=== PATIENT | female | born 1960 | race Caucasian/White ===

== ENCOUNTER 2017-02-18 17:20 | Emergency (ER) | payer OTHER ==
[~2017-02-18] VITALS: Ht 170.1 cm; Wt 89.8 kg
[~2017-02-18 17:20] MED LIST: CELEXA10 MG PO; CELEXA20 MG PO; DUONEB 3 MG/3 ML3 ML IH; FLEXERIL10 MG PO; HYDROCODONE BIT1 T11 PO; PERCOCET 325 MG1 TA2 PO; SYMBICORT1 AE1 INH; VITAMIN D2000 IU PO
[2017-02-18] MEDS ORDERED: BREO ELLIPTA 21 EACH IH (17:45)
[2017-02-18] MEDS ORDERED: ALBUTEROL SULF0.5 M1 INH (17:45)
[2017-02-18] MEDS ORDERED: SERTRALINE HYD100 MG PO (17:46)
[2017-02-18] MEDS ORDERED: Motrin,Rufen800 MG PO (19:31)
== END 2017-02-18 19:15 | disposition home or self-care (01) ==
LOC: ED 17:20
DX: S93.402A Sprain of unspecified ligament of left ankle, initial encounter (principal); F17.200 Nicotine dependence, unspecified, uncomplicated; Z98.890 Other specified postprocedural states; Z90.710 Acquired absence of both cervix and uterus; Z79.899 Other long term (current) drug therapy; X58.XXXA Exposure to other specified factors, initial encounter; Y93.01 Activity, walking, marching and hiking; Y92.096 Garden or yard of other non-institutional residence as the place of occurrence of the external cause; Y99.9 Unspecified external cause status

== ENCOUNTER → 2017-06-21 | Outpatient (CLI) | payer OTHER ==
[~2017-06-21] MED LIST changes: +ALBUTEROL SULF0.5 M1 INH; +BREO ELLIPTA 21 EACH IH; +Motrin,Rufen800 MG PO; +SERTRALINE HYD100 MG PO
== END | disposition home or self-care (01) ==
LOC: RAD 17:06
DX: M48.02 Spinal stenosis, cervical region (principal); R20.2 Paresthesia of skin

== ENCOUNTER → 2017-09-22 | Outpatient (CLI) | payer OTHER | END | disposition home or self-care (01) | LOC: CARD 09:24 | DX: R42 Dizziness and giddiness (principal); R94.31 Abnormal electrocardiogram [ECG] [EKG] ==

== ENCOUNTER 2018-01-03 16:33 | Emergency (ER) | payer OTHER ==
[~2018-01-03] VITALS: Wt 91.2 kg
[2018-01-03] MEDS ORDERED: CHLORZOXAZONE500 M2 PO (16:44)
[2018-01-03] MEDS ORDERED: NAPROSYN500 MG PO (16:44)
== END 2018-01-03 18:40 | disposition home or self-care (01) ==
LOC: ED 16:33
DX: R20.2 Paresthesia of skin (principal); R03.0 Elevated blood-pressure reading, without diagnosis of hypertension; Z98.890 Other specified postprocedural states; Z79.899 Other long term (current) drug therapy

== ENCOUNTER → 2018-01-13 | Outpatient (CLI) | payer OTHER ==
[~2018-01-13] MED LIST changes: +CHLORZOXAZONE500 M2 PO; +NAPROSYN500 MG PO
== END | disposition home or self-care (01) ==
LOC: RAD 13:23
DX: M48.02 Spinal stenosis, cervical region (principal)

== ENCOUNTER → 2018-02-18 | Outpatient (CLI) | payer OTHER | END | disposition home or self-care (01) | LOC: RAD 12:54 | DX: M48.02 Spinal stenosis, cervical region (principal); M25.511 Pain in right shoulder ==

== ENCOUNTER → 2018-03-09 | Outpatient (CLI) | payer OTHER | END | disposition home or self-care (01) | LOC: US 10:16 | DX: M79.9 Soft tissue disorder, unspecified (principal); M25.511 Pain in right shoulder; R20.2 Paresthesia of skin; R22.9 Localized swelling, mass and lump, unspecified ==

== ENCOUNTER → 2018-03-24 | Outpatient (CLI) | payer OTHER | END | disposition home or self-care (01) | LOC: MRI 14:29 | DX: M50.223 Other cervical disc displacement at C6-C7 level (principal); M48.02 Spinal stenosis, cervical region ==

== ENCOUNTER → 2018-07-28 | Outpatient (CLI) | payer OTHER | END | disposition home or self-care (01) | LOC: MAMMO 13:56 | DX: Z12.31 Encounter for screening mammogram for malignant neoplasm of breast (principal) ==

== ENCOUNTER → 2018-08-11 | Outpatient (CLI) | payer OTHER | END | disposition home or self-care (01) | LOC: CT 08-09 13:00 | DX: R51 Headache (principal) ==

== ENCOUNTER → 2018-11-14 | Outpatient (CLI) | payer OTHER | END | disposition home or self-care (01) | LOC: RAD 15:44 | DX: S39.92XA Unspecified injury of lower back, initial encounter (principal); W19.XXXA Unspecified fall, initial encounter; Y93.89 Activity, other specified; Y92.89 Other specified places as the place of occurrence of the external cause; Y99.8 Other external cause status; M54.5 Low back pain ==

== ENCOUNTER → 2019-03-21 | Outpatient (CLI) | payer OTHER | END | disposition home or self-care (01) | LOC: RAD 10:51 | DX: J44.9 Chronic obstructive pulmonary disease, unspecified (principal); F17.200 Nicotine dependence, unspecified, uncomplicated ==

== ENCOUNTER → 2021-07-25 | Outpatient (CLI) | payer OTHER | END | disposition home or self-care (01) | LOC: COVID19 15:00 | PROVIDERS: ATTEND Podiatrist Foot & Ankle Surgery | DX: Z11.52 Encounter for screening for COVID-19 (principal) ==

== ENCOUNTER → 2021-07-30 | Outpatient (CLI) | payer OTHER | END | disposition home or self-care (01) | LOC: RAD 10:01 | PROVIDERS: ATTEND Internal Medicine Nephrology | DX: J44.1 Chronic obstructive pulmonary disease with (acute) exacerbation (principal) ==

== ENCOUNTER 2021-12-03 22:59 | Emergency (ER) | payer OTHER ==
[~2021-12-03] VITALS: Ht 167.6 cm; Wt 90.7 kg
[2021-12-03] MEDS ORDERED: METFORMIN HYDR750 MG PO (23:21)
[2021-12-03] MEDS ORDERED: VITAMIN D350 MCG PO (23:22)
[2021-12-03] MEDS ORDERED: Bactroban Oint22 GM T (23:57)
== END 2021-12-04 01:11 | disposition home or self-care (01) ==
LOC: ED 22:59
DX: S81.011A Laceration without foreign body, right knee, initial encounter (principal); F17.200 Nicotine dependence, unspecified, uncomplicated; Z79.899 Other long term (current) drug therapy; W18.39XA Other fall on same level, initial encounter; Y93.89 Activity, other specified; Y92.89 Other specified places as the place of occurrence of the external cause; Y99.8 Other external cause status

== ENCOUNTER → 2022-09-10 | Outpatient (CLI) | payer OTHER ==
[~2022-09-10] MED LIST changes: +Bactroban Oint22 GM T; +METFORMIN HYDR750 MG PO; +VITAMIN D350 MCG PO
== END | disposition home or self-care (01) ==
LOC: RAD 15:41
PROVIDERS: ATTEND Internal Medicine
DX: J43.9 Emphysema, unspecified (principal); J45.909 Unspecified asthma, uncomplicated

== ENCOUNTER 2023-02-13 16:14 | Emergency (ER) | payer OTHER ==
[~2023-02-13] VITALS: Ht 172.7 cm; Wt 82.1 kg
[2023-02-13] MEDS ORDERED: MONTELUKAST SOD10 MG PO (16:42)
[2023-02-13] MEDS ORDERED: CITALOPRAM10 MG PO (16:43)
[2023-02-13] MEDS ORDERED: BUDESONIDE-FO10.2 G1 INH (16:43)
[2023-02-13] MEDS ORDERED: ATORVASTATIN CA20 M1 PO (16:43)
[2023-02-13] MEDS ORDERED: JARDIANCE25 MG PO (16:45)
[2023-02-13] MEDS ORDERED: TRADJENTA5 M1 PO (16:45)
[2023-02-13] MEDS ORDERED: NAPROSYN500 MG PO (17:25)
[2023-02-13] MEDS ORDERED: VOLTAREN ARTHRI20 GM T (17:25)
== END 2023-02-13 17:37 | disposition home or self-care (01) ==
LOC: ED 16:14
DX: M54.41 Lumbago with sciatica, right side (principal); Z79.899 Other long term (current) drug therapy

== ENCOUNTER → 2023-03-01 | Outpatient (CLI) | payer OTHER ==
[~2023-03-01] MED LIST changes: +ATORVASTATIN CA20 M1 PO; +BUDESONIDE-FO10.2 G1 INH; +CITALOPRAM10 MG PO; +JARDIANCE25 MG PO; +MONTELUKAST SOD10 MG PO; +TRADJENTA5 M1 PO; +VOLTAREN ARTHRI20 GM T
== END | disposition home or self-care (01) ==
LOC: RAD 15:53
PROVIDERS: ATTEND Internal Medicine
DX: J43.9 Emphysema, unspecified (principal)

== ENCOUNTER → 2023-09-22 | Outpatient (CLI) | payer OTHER | END | disposition home or self-care (01) | LOC: RAD 14:10 | PROVIDERS: ATTEND Internal Medicine | DX: M47.817 Spondylosis without myelopathy or radiculopathy, lumbosacral region (principal); I70.0 Atherosclerosis of aorta ==

== ENCOUNTER → 2023-10-02 | Outpatient (CLI) | payer OTHER | END | disposition home or self-care (01) | LOC: US 03:18 | PROVIDERS: ATTEND Internal Medicine | DX: M79.605 Pain in left leg (principal); R20.2 Paresthesia of skin; R20.0 Anesthesia of skin ==

== ENCOUNTER → 2023-10-29 | Outpatient (CLI) | payer OTHER ==
[2023-10-27 14:30] LABS: ALKALINE PHOSPHATASE 113 U/L (46-116); BUN 12 mg/dl (9-23); CHLORIDE 104 mmol/L (98-107); POTASSIUM 5.1 mmol/L (3.4-5.1); SGPT/ALT 19 U/L (5-49)
== END | disposition home or self-care (01) ==
LOC: LAB 10-27 02:14 → CT 10-27 13:00 → LAB 02:41
PROVIDERS: ATTEND Internal Medicine
DX: I70.203 Unspecified atherosclerosis of native arteries of extremities, bilateral legs (principal)

== ENCOUNTER → 2024-12-12 | Outpatient (CLI) | payer OTHER ==
[~2024-12-12] MED LIST changes: +24 HOUR ALLER15.8 ML INH; +AIRSUPRA 90-810.7 GM INH; +ARTHRITIS PAIN150 G1 TD; +BENZONATATE100 M1 PO; +CILOSTAZOL100 MG PO; +CLOPIDOGREL75 MG PO; +DERMACINRX LID1 EACH T; +DULOXETINE HCL60 MG PO; +LEVOFLOXACIN750 M2 PO; +MUCUS RELIEF600 MG PO; +NICODERM CQ1 EAC2 TD; +OMEPRAZOLE40 MG PO; +ROSUVASTATIN CA20 MG PO; +VITAMIN D350 MC2 PO
== END | disposition home or self-care (01) ==
LOC: RAD 16:01
PROVIDERS: ATTEND Internal Medicine
DX: J43.9 Emphysema, unspecified (principal); J44.1 Chronic obstructive pulmonary disease with (acute) exacerbation; R05.9 Cough, unspecified; R09.89 Other specified symptoms and signs involving the circulatory and respiratory systems

== ENCOUNTER → 2025-01-15 | Outpatient (CLI) | payer OTHER | END | disposition home or self-care (01) | LOC: RAD 16:21 | PROVIDERS: ATTEND Internal Medicine | DX: J44.1 Chronic obstructive pulmonary disease with (acute) exacerbation (principal) ==

== ENCOUNTER 2025-03-17 03:40 | Emergency (ER) | payer OTHER ==
[~2025-03-17] VITALS: Ht 170.2 cm; Wt 77.1 kg
[2025-03-17] MEDS ORDERED: Dexamethasone Sodium Phospha 20 MG/5 ML VIAL IV ONE (04:20)
[2025-03-17] MEDS ORDERED: Albuterol Sulf/Ipratropium 3 ML VIAL NEB ONE (04:20)
[2025-03-17] MEDS ORDERED: Ketorolac Tromethamine 30 MG/ML VIAL IV ONE (04:20)
[2025-03-17 04:41] LABS: HEMATOCRIT 54.6 % (37.0-47.0); MEAN CELL VOLUME 93.7 fl (81.0-99.0); MEAN CORPUSCULAR HGB 30.4 pg (27.0-31.0); MEAN CORPUSCULAR HGB CONC 32.4 g/dl (33.0-37.0); PLATELET COUNT AUTOMATED 194 10*3/uL (130-400); RED BLOOD COUNT 5.83 10*6/uL (4.10-5.10); RED CELL DISTRI WIDTH 14.6 % (0-14.5); WHITE BLOOD COUNT 18.2 10*3/uL (4.8-10.8)
[2025-03-17 04:42] LABS: MANUAL DIFF REFLEX YES
[2025-03-17 05:04] LABS: BUN 16 mg/dl (9-23); CHLORIDE 99 mmol/L (98-107); POTASSIUM 4.3 mmol/L (3.4-5.1)
[2025-03-17 05:05] LABS: BASOPHILS 1 % (0-1); BURR CELLS FEW; PLATELET SUFFICIENCY NORMAL (NORMAL); ROULEAUX SLIGHT; TOTAL CELLS COUNTED 100 #CELLS
[2025-03-17] MEDS ORDERED: cefTRIAXone Sodium 1 GM/10 ML SYR IV ONE (05:05)
[2025-03-17] MEDS ORDERED: AZITHROMYCIN 250 ML IV ONE (05:10)
[2025-03-17] MEDS ORDERED: ZITHROMAX250 MG PO (05:54)
[2025-03-17] MEDS ORDERED: PREDNISONE20 M1 PO (05:54)
[2025-03-17] MEDS ORDERED: METHOCARBAMOL750 M1 PO (05:55)
== END 2025-03-17 06:26 | disposition home or self-care (01) ==
LOC: ED 03:40
PROVIDERS: Emergency Medicine
DX: J44.1 Chronic obstructive pulmonary disease with (acute) exacerbation (principal); B88.8 Other specified infestations; J18.9 Pneumonia, unspecified organism; Z79.899 Other long term (current) drug therapy; Z79.84 Long term (current) use of oral hypoglycemic drugs; Z90.5 Acquired absence of kidney; Z90.711 Acquired absence of uterus with remaining cervical stump; Z98.890 Other specified postprocedural states

== ENCOUNTER → 2025-03-21 | Outpatient (CLI) | payer OTHER ==
[~2025-03-21] MED LIST changes: +AMOX-CLAV 875-1 EACH PO; +HYDROCODONE-AC1 EAC1 PO; +METHOCARBAMOL750 M1 PO; +PREDNISONE20 M1 PO; +ZITHROMAX250 MG PO
== END | disposition home or self-care (01) ==
LOC: RAD 15:08
PROVIDERS: ATTEND Internal Medicine
DX: S52.125A Nondisplaced fracture of head of left radius, initial encounter for closed fracture (principal); M79.89 Other specified soft tissue disorders; M25.422 Effusion, left elbow; M25.531 Pain in right wrist; X58.XXXA Exposure to other specified factors, initial encounter; Y93.89 Activity, other specified; Y92.89 Other specified places as the place of occurrence of the external cause; Y99.8 Other external cause status

== ENCOUNTER 2025-03-26 17:01 | Emergency (ER) | payer OTHER ==
[~2025-03-26] VITALS: Ht 172.7 cm; Wt 76.7 kg
[~2025-03-26 17:01] MED LIST changes: -AMOX-CLAV 875-1 EACH PO; -HYDROCODONE-AC1 EAC1 PO
[2025-03-26] MEDS ORDERED: HYDROCODONE-AC1 EAC1 PO (17:32)
[2025-03-26] MEDS ORDERED: ZITHROMAX250 MG PO (18:14)
[2025-03-26] MEDS ORDERED: AMOX-CLAV 875-1 EACH PO (18:14)
[2025-03-26] MEDS ORDERED: Amoxicillin/Clavulanate Pota 875 MG TAB PO ONE (18:15)
[2025-03-26] MEDS ORDERED: AZITHROMYCIN 250 MG TAB PO ONE (18:15)
== END 2025-03-26 18:19 | disposition home or self-care (01) ==
LOC: ED 17:01
DX: S52.122A Displaced fracture of head of left radius, initial encounter for closed fracture (principal); J44.9 Chronic obstructive pulmonary disease, unspecified; J45.909 Unspecified asthma, uncomplicated; Z79.899 Other long term (current) drug therapy; Z98.890 Other specified postprocedural states; W01.0XXA Fall on same level from slipping, tripping and stumbling without subsequent striking against object, initial encounter; Y93.89 Activity, other specified; Y92.89 Other specified places as the place of occurrence of the external cause; Y99.8 Other external cause status

== ENCOUNTER → 2025-04-06 | Outpatient (CLI) | payer OTHER ==
[~2025-04-06] MED LIST changes: +AMOX-CLAV 875-1 EACH PO; +HYDROCODONE-AC1 EAC1 PO
== END | disposition home or self-care (01) ==
LOC: ORTHO 03:14
PROVIDERS: ATTEND Orthopaedic Surgery
DX: S52.125D Nondisplaced fracture of head of left radius, subsequent encounter for closed fracture with routine healing (principal); X58.XXXD Exposure to other specified factors, subsequent encounter

== ENCOUNTER → 2025-04-20 | Outpatient (CLI) | payer OTHER | END | disposition home or self-care (01) | LOC: ORTHO 04:24 | PROVIDERS: ATTEND Orthopaedic Surgery | DX: S52.125D Nondisplaced fracture of head of left radius, subsequent encounter for closed fracture with routine healing (principal); X58.XXXD Exposure to other specified factors, subsequent encounter ==

== ENCOUNTER → 2025-08-08 | Outpatient (CLI) | payer OTHER | END | disposition home or self-care (01) | LOC: RAD 13:03 | PROVIDERS: ATTEND Orthopaedic Surgery | DX: M85.88 Other specified disorders of bone density and structure, other site (principal); M81.0 Age-related osteoporosis without current pathological fracture ==

== ENCOUNTER 2025-08-29 16:31 | Emergency (ER) | payer OTHER ==
[~2025-08-29] VITALS: Ht 172.7 cm; Wt 77.1 kg
[2025-08-29] MEDS ORDERED: Acetaminophen/Hydrocodone 5 MG/325 MG TABLET PO ONE (17:40)
[2025-08-29] MEDS ORDERED: METHOCARBAMOL 750 MG TAB PO ONE (17:40)
[2025-08-29] MEDS ORDERED: Dexamethasone Sodium Phospha 20 MG/5 ML VIAL IM ONE (17:40)
[2025-08-29] MEDS ORDERED: Ondansetron Hydrochloride 4 MG TAB PO ONE (17:40)
[2025-08-29] MEDS ORDERED: HYDROCODONE-AC1 EAC1 PO (17:42)
== END 2025-08-29 18:03 | disposition home or self-care (01) ==
LOC: ED 16:31
DX: S39.012A Strain of muscle, fascia and tendon of lower back, initial encounter (principal); Z79.899 Other long term (current) drug therapy; Z90.5 Acquired absence of kidney; Z90.710 Acquired absence of both cervix and uterus; Z85.42 Personal history of malignant neoplasm of other parts of uterus; Z85.528 Personal history of other malignant neoplasm of kidney; Z98.890 Other specified postprocedural states; X50.1XXA Overexertion from prolonged static or awkward postures, initial encounter; Y93.89 Activity, other specified; Y92.89 Other specified places as the place of occurrence of the external cause; Y99.8 Other external cause status

== ENCOUNTER 2025-09-03 19:30 | Emergency (ER) | payer OTHER ==
[~2025-09-03] VITALS: Ht 172.7 cm; Wt 90.7 kg
[2025-09-03] MEDS ORDERED: Albuterol Sulf/Ipratropium 3 ML VIAL NEB ONE (19:45)
[2025-09-03 20:25] LABS: BUN 16 mg/dl (9-23); SGPT/ALT 26 U/L (5-49)
[2025-09-03 20:26] LABS: BASO # 0.1 10*3/uL (0.0-0.1); BASO % 0.4 % (0.0-1.0); EOS # 0.1 10*3/uL (0.0-0.4); EOS % 0.3 % (1.0-4.0); MEAN CELL VOLUME 90.7 fl (81.0-99.0); MEAN CORPUSCULAR HGB 28.4 pg (27.0-31.0); MEAN PLATELET VOLUME 10.3 fl (9.6-12.3); MONO # 1.5 10*3/uL (0.1-1.0); MONO % 7.2 % (3.0-9.0); NEUT # 17.4 10*3/uL (2.3-7.9); NEUT % 85.7 % (47.0-73.0); NUCLEATED RED BLOOD CELL 0.0 % (0.0-0.0); NUCLEATED RED BLOOD CELL 0.0 10*3/uL (0.0-0.0); PLATELET COUNT AUTOMATED 199 10*3/uL (130-400); RED CELL DISTRI WIDTH 15.7 % (0-14.5)
[2025-09-03] MEDS ORDERED: AZITHROMYCIN 250 ML IV ONE (20:40)
[2025-09-03 21:13] LABS: ACT PARTIAL THROMBO TIME 25.4 SECONDS (20.0-32.1)
[2025-09-03] MEDS ORDERED: AVPAK AZITHROM250 M1 PO (21:49)
[2025-09-03] MEDS ORDERED: AMOX-CLAV 875-1 EACH PO (21:49)
== END 2025-09-03 22:39 | disposition left against medical advice (07) ==
LOC: ED 19:30
PROVIDERS: Internal Medicine
DX: J96.21 Acute and chronic respiratory failure with hypoxia (principal); J18.9 Pneumonia, unspecified organism; R05.9 Cough, unspecified; J44.89 Other specified chronic obstructive pulmonary disease; F32.A Depression, unspecified; Z53.29 Procedure and treatment not carried out because of patient's decision for other reasons